=== PATIENT | female | born 1960 | race Two or more races ===

== ENCOUNTER 2023-07-05 10:15 | Outpatient (CLI) | payer OTHER | END 2023-07-05 10:20 | disposition home or self-care (01) | LOC: MAMO-SONO 10:15 | PROVIDERS: ATTEND Specialist | DX: N60.11 Diffuse cystic mastopathy of right breast (principal); N60.12 Diffuse cystic mastopathy of left breast; Z12.31 Encounter for screening mammogram for malignant neoplasm of breast ==

== ENCOUNTER 2023-07-05 10:31 | Outpatient (CLI) | payer OTHER | END 2023-07-05 10:34 | disposition home or self-care (01) | LOC: NUCLEAR 10:31 | PROVIDERS: ATTEND Obstetrics & Gynecology | DX: M81.0 Age-related osteoporosis without current pathological fracture (principal) ==

== ENCOUNTER 2023-07-20 07:15 | Outpatient (CLI) | payer OTHER | END 2023-07-20 07:23 | disposition home or self-care (01) | LOC: SONOGRAMA 07:15 | DX: N18.2 Chronic kidney disease, stage 2 (mild) (principal); E05.80 Other thyrotoxicosis without thyrotoxic crisis or storm ==

== ENCOUNTER 2024-07-11 07:08 | Outpatient (CLI) | payer OTHER ==
[2024-07-11 08:24] LABS: PH,URINE 5.5 (5.0-8.0); URINE APPEARANCE Clear; URINE BILIRRUBIN Negative (NEGATIVE); URINE BLOOD Negative; URINE COLOR Yellow; URINE GLUCOSE Negative (NEGATIVE); URINE KETONE Negative (NEGATIVE); URINE LEUKOCYTE Small; URINE NITRATE Negative; URINE PROTEIN Negative (NEGATIVE); URINE UROBILINOGEN 0.2 E.U./dl
[2024-07-11 08:26] LABS: HEMATOCRIT 41.4 % (36.0-45.00); HEMOGLOBIN 13.9 g/dL (12.0-15.00); MEAN CELL VOLUME 87.1 fL (80.00-100.00); MEAN CORPUSCULAR HEMOGLOBIN 29.2 pg (27.00-32.0); MEAN CORPUSCULAR HGB CONC 33.6 g/dl (32.0-36.0); PLATELET COUNT 262 K/uL (150-450); RED BLOOD COUNT 4.75 M/uL (4.00-6.00); RED CELL DISTRIBUTION WIDTH 14.1 % (11.5-14.5)
[2024-07-11 08:29] LABS: URINE EPITHELIAL CELLS 2.9 uL (0.0-38.8); URINE RBC 2.3 uL (0.0-20.8); URINE WBC 15.3 uL (0.0-23.2)
[2024-07-11 09:11] LABS: ALBUMIN 4.1 gm/dL (3.4-5.0); BILIRUBIN TOTAL 0.54 mg/dL (0.3-1.2); CALCIUM 9.5 mg/dL (8.5-10.1); CREATININE SERUM 0.96 mg/dL (0.55-1.02); GFR 58.89; POTASSIUM 4.24 mEq/L (3.5-5.1); T4 FREE 1.03 NG/ML (0.76-1.46); TOTAL PROTEIN 7.1 gm/dL (6.4-8.2); TSH 2.67 uIU/mL (0.358-3.74)
== END 2024-07-11 07:09 | disposition home or self-care (01) ==
LOC: LAB 07:08
DX: I11.9 Hypertensive heart disease without heart failure (principal); N39.0 Urinary tract infection, site not specified; E11.65 Type 2 diabetes mellitus with hyperglycemia; E07.9 Disorder of thyroid, unspecified; E78.2 Mixed hyperlipidemia

== ENCOUNTER 2024-07-11 07:54 | Outpatient (CLI) | payer OTHER | END 2024-07-11 07:57 | disposition home or self-care (01) | LOC: MAMO-SONO 07:54 | PROVIDERS: ATTEND General Practice | DX: Z12.31 Encounter for screening mammogram for malignant neoplasm of breast (principal) ==

== ENCOUNTER → 2025-03-03 08:08 | Outpatient (CLI) | payer OTHER ==
[2025-03-03 09:51] LABS: ob NEGATIVE (NEGATIVE)
[2025-03-03 09:59] LABS: URINE APPEARANCE Clear; URINE BACTERIA 506.3 uL (0.0-1933); URINE BILIRRUBIN Negative (NEGATIVE); URINE BLOOD Negative; URINE COLOR Yellow; URINE EPITHELIAL CELLS 22.1 uL (0.0-38.8); URINE GLUCOSE Negative (NEGATIVE); URINE KETONE Negative (NEGATIVE); URINE LEUKOCYTE Moderate; URINE NITRATE Negative; URINE PROTEIN Negative (NEGATIVE); URINE RBC 9.6 uL (0.0-20.8); URINE UROBILINOGEN 1.0 E.U./dl; URINE WBC 34.1 uL (0.0-23.2)
[2025-03-03 10:00] LABS: URINE CAST 0.29 uL (0.0-1.40)
[2025-03-03 10:15] LABS: BASO % 0.3 % (0.1-1.2); EOS # 0.03 (0.04-0.54); EOS % 0.5 % (0.7-7.0); LYMPH # 1.80 (1.18-3.74); LYMPH % 27.7 % (19.3-53.1); MEAN PLATELET VOLUME 9.40 fl (9.4-12.4); MONO # 0.45 (0.24-0.82); MONO % 6.9 % (4.7-12.5); NEUT # 4.18 (1.56-6.13); NEUT % 64.4 % (34.0-71.1); RED CELL DISTRIBUTION WIDTH 12.7 % (11.6-14.4)
[2025-03-03 11:50] LABS: ALT/SGPT 28.0 U/L (12-78); AST/SGOT 14.0 U/L (15-37); BILIRUBIN TOTAL 0.51 mg/dL (0.3-1.2); BUN CREA RATIO 19.0 (7.0-25.0); CHOL HDL RATIO 3.3 (0-5.0); CREATININE SERUM 0.69 mg/dL (0.55-1.02); GFR 85.93; GLOBULINA 3.2 G/DL (2.4-3.5); GLUCOSE FASTING 86.0 mg/dL (65-100); HDL 57.0 mg/dl (40-60); LDL 113.0 mg/dl (0-130); OSMOLALITY SERUM 283.0 MOSM/KG (275-295); T4 FREE 0.99 NG/ML (0.76-1.46); TSH 1.99 uIU/mL (0.358-3.74); VLDL 20.0 (0-39)
== END | disposition home or self-care (01) ==
LOC: LAB 08:08
PROVIDERS: ATTEND General Practice
DX: I10 Essential (primary) hypertension (principal); N39.0 Urinary tract infection, site not specified; K62.5 Hemorrhage of anus and rectum; E11.65 Type 2 diabetes mellitus with hyperglycemia; E78.2 Mixed hyperlipidemia; E07.9 Disorder of thyroid, unspecified